=== PATIENT | male | born 1995 | race Caucasian/White ===

== ENCOUNTER 2020-01-03 09:42 | Outpatient (REF) | payer OTHER, SELFPAY | END 2020-01-03 09:43 | disposition home or self-care (01) | LOC: HO.LAB 09:42 | PROVIDERS: Visit Provider Nurse Practitioner Family | DX: Z20.828 Contact with and (suspected) exposure to other viral communicable diseases (principal); R05 Cough | CPT/HCPCS: 87635 ==

== ENCOUNTER 2024-05-13 02:42 | Emergency (ER) | payer OTHER, SELFPAY ==
[2024-05-13 02:44] VITALS: BP 148/82; PULSE 120
[2024-05-13 02:50] VITALS: BP 121/61; PULSE 95; RESP 18; TEMP 37.1; BMI 42.6
--- NOTE | 2024-05-13 02:58 | PC.NURSE ---
Pt a&o4, no signs of distress Pt reports 8 back pain Plan of care ongoing
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
[2024-05-13] MEDS: Ibuprofen 800 MG TABLET PO (03:58)
--- NOTE | 2024-05-13 04:03 | PC.NURSE ---
Pt medicated per mar Pts friend at bedside Plan of care ongoing.
[2024-05-13 04:04] VITALS: BP 121/61; PULSE 95; RESP 18; TEMP 37.1
== END 2024-05-13 04:05 | disposition home or self-care (01) ==
PROVIDERS: Emergency Provider Internal Medicine
DX: S39.012A Strain of muscle, fascia and tendon of lower back, initial encounter (principal); V43.52XA Car driver injured in collision with other type car in traffic accident, initial encounter; Y93.89 Activity, other specified; Y92.410 Unspecified street and highway as the place of occurrence of the external cause; Y99.9 Unspecified external cause status
CPT/HCPCS: 99283; 99284